=== PATIENT | female | born 1935 | race Caucasian/White ===

== ENCOUNTER 2020-12-20 17:47 | Inpatient (IN) | payer MEDICARE, OTHER ==
[~2020-12-20] VITALS: Ht 160 cm; Wt 71.8 kg
[2020-12-20] VITALS: BP 112/53
[2020-12-20 20:45] VITALS: BP 103/50
--- NOTE | 2020-12-20 20:45 | NUR ---
PATIENT ADMITTED TO ROOM 358B FROM [facility] FOR COLOSTOMY POSSIBLY IN AM BY DR. FRIEND. PLACED COMFORTABLE IN BED. VITAL SIGNS TAKEN AND RECORDED.
[2020-12-20] MEDS ORDERED: magnesium 2GM in 50ml NS 50 ML IV PRN (21:20)
[2020-12-20] MEDS ORDERED: magnesium 4gm in 100ml NS 100 ML IV PRN (21:20)
[2020-12-20] MEDS ORDERED: magnesium Cl slow-release 64mg tablet PO PRN (21:20)
[2020-12-20] MEDS ORDERED: mag hydrox/Alum hydrox/simeth 30ml oral suspension PO PRN (21:20)
[2020-12-20] MEDS ORDERED: magnesium hydroxide 30ml (MOM) UD suspension PO PRN (21:20)
[2020-12-20] MEDS ORDERED: acetaminophen 325mg tablet PO PRN (21:20)
[2020-12-20] MEDS ORDERED: potassium Cl 20 mEq SR tablet PO PRN ×2 (21:20)
[2020-12-20] MEDS ORDERED: ondansetron/PF 4mg/2ml inj IV PRN (21:20)
[2020-12-20] MEDS ORDERED: potassium Cl 40MEQ/1/2NS 520ml 520 ML IV PRN ×2 (21:20)
[2020-12-20] MEDS ORDERED: HYDROcodone/acetaminophen 5mg/325mg tablet PO PRN (23:30)
[2020-12-20] MEDS ORDERED: baclofen 10mg tablet PO PRN (23:30)
[2020-12-20] MEDS ORDERED: METO-384 PO (23:57)
[2020-12-21] VITALS (17 sets, daily range): BP systolic 112–155; BP diastolic 45–70
[2020-12-21] MEDS ORDERED: FAMO40TA58 PO (00:21)
[2020-12-21] MEDS ORDERED: GABA600T13 PO (00:26)
[2020-12-21] MEDS ORDERED: ATOR20TA66 PO (00:26)
[2020-12-21] MEDS ORDERED: CITA40TA17 PO (00:26)
[2020-12-21] MEDS ORDERED: BACL10TA PO (00:46)
[2020-12-21] MEDS ORDERED: FURO40TA4 PO (00:47)
[2020-12-21] MEDS: HYDROcodone/acetaminophen 5mg/325mg tablet PO PRN ×2 (00:48→17:31)
[2020-12-21] MEDS ORDERED: CYAN25006 SL (00:49)
[2020-12-21] MEDS ORDERED: PER5325T PO (00:52)
[2020-12-21] MEDS: morphine 2 MG/ML inj. syringe IV PRN ×2 (05:17→09:38)
[2020-12-21] MEDS ORDERED: oxyCODONE/APAP 5-325mg tablet PO PRN (05:50)
[2020-12-21 06:03] LABS: BASOPHILS % (AUTO) 0.7 % (0-1); EOSINOPHILS # (AUTO) 0.1 X10'3 (0-0.9); EOSINOPHILS % (AUTO) 2.5 % (0-6); HEMATOCRIT 30.3 % (35.0-45.0); HEMOGLOBIN 9.5 g/dl (12.0-16.0); LYMPHOCYTES # (AUTO) 0.9 X10'3 (1.1-4.8); LYMPHOCYTES % (AUTO) 16.9 % (21-51); MEAN CORPUSCULAR HEMOGLOBIN 28.7 PG (27.0-31.0); MEAN CORPUSCULAR HGB CONC 31.4 g/dL (33.0-36.5); MEAN CORPUSCULAR VOLUME 91.5 FL (78-98); MEAN PLATELET VOLUME 7.9 FL (7.4-10.4); MONOCYTES # (AUTO) 0.6 X10'3 (0-0.9); MONOCYTES % (AUTO) 11.2 % (2-12); NEUTROPHILS # (AUTO) 3.7 X10'3 (1.8-7.7); NEUTROPHILS % (AUTO) 68.7 % (42-75); PLATELET COUNT 240 X10'3 (140-440); RED BLOOD COUNT 3.32 X10'6 (4.20-5.60); RED CELL DISTRIBUTION WIDTH 15.1 % (11.5-14.5); WHITE BLOOD COUNT 5.3 X10'3 (4.5-11.0)
[2020-12-21 06:07] LABS: HEMOGLOBIN A1C 5.5 % (4.5-6.2)
[2020-12-21 06:16] LABS: PARTIAL THROMBOPLASTIN TIME 27 SECONDS (22-32)
[2020-12-21 06:22] LABS: ALANINE AMINOTRANSFERASE 27 U/L (12-78); ALBUMIN 2.3 G/DL (3.4-5.0); ALBUMIN/GLOBULIN RATIO 0.6 (1.1-1.5); ALKALINE PHOSPHATASE 149 IU/L (46-116); ANION GAP 4 (8-16); ASPARTATE AMINO TRANSFERASE 25 U/L (10-37); BILIRUBIN,TOTAL 0.3 MG/DL (0.1-1.0); BLOOD UREA NITROGEN 46 MG/DL (7-18); BUN/CREATININE RATIO 75.4 (6.6-38.0); CHLORIDE 106 MMOL/L (99-107); CHOL/HDL RATIO 1.7 (0.00-4.99); CHOLESTEROL 98 MG/DL (0-200); CREATININE 0.61 MG/DL (0.40-0.90); GLUCOSE 95 MG/DL (70-104); HDL CHOLESTEROL 59 MG/DL (35-60); LDL CHOLESTEROL 33 MG/DL (50-100); MAGNESIUM 2.1 MG/DL (1.5-2.4); POTASSIUM 4.7 MMOL/L (3.5-5.1); SODIUM 139 MMOL/L (135-145); TOTAL PROTEIN 6.4 G/DL (6.4-8.2); TRIGLYCERIDES 67 MG/DL (20-135); eGFR > 90 ML/MIN
--- NOTE | 2020-12-21 06:30 | NUR ---
Problems reprioritized. Patient report given, questions answered & plan of care reviewed with LISA WALTERS.
--- NOTE | 2020-12-21 07:00 | NUR ---
patient refused 0700 vitals.
[2020-12-21] MEDS ORDERED: atorvastatin 20mg tablet PO SCH (08:00)
[2020-12-21] MEDS ORDERED: citalopram 20mg tablet PO SCH (08:00)
[2020-12-21] MEDS ORDERED: gabapentin 300mg capsule PO SCH (08:00)
[2020-12-21] MEDS: furosemide 40mg tablet PO SCH ×2 (08:00→20:19)
[2020-12-21] MEDS: enoxaparin 40mg/0.4ml syringe SUBCUT SCH (08:00)
[2020-12-21] MEDS ORDERED: ferrous sulfate ER tablet 140 MG TABLET.ER PO SCH (08:00)
[2020-12-21] MEDS ORDERED: famotidine 20mg tablet PO SCH (08:00)
[2020-12-21] MEDS ORDERED: cyanocobalamin 500mcg tablet PO SCH (08:00)
[2020-12-21] MEDS: K and/or MAG REPLACEMENT MC SCH ×2 (08:00→20:00)
[2020-12-21] MEDS ORDERED: furosemide 40mg tablet PO SCH (08:00)
[2020-12-21] MEDS: atorvastatin 20mg tablet PO SCH (09:27)
[2020-12-21] MEDS: gabapentin 300mg capsule PO SCH ×3 (09:27→20:18)
[2020-12-21] MEDS: baclofen 10mg tablet PO SCH ×3 (09:27→20:18)
[2020-12-21] MEDS: metoprolol succinate 25mg (24-HOUR) SR. Tablet PO SCH ×2 (09:27→20:19)
[2020-12-21] MEDS: CITALOpram 10mg tablet PO SCH (09:27)
[2020-12-21] MEDS: famotidine 20mg tablet PO SCH (09:28)
[2020-12-21] MEDS: cyanocobalamin 500mcg tablet PO SCH (09:28)
[2020-12-21] MEDS: ringers solution, lacted 1,000 ML IV SCH (10:18)
--- NOTE | 2020-12-21 10:23 | NUR ---
PAGE SENT TO RADIOLOGY ... Janey CISNER[facility] 358B: PATIENT NEEDS PRE-OP CXR. THANKS!
[2020-12-21] MEDS ORDERED: hydrALAZINE 20mg/ml inj. IV PRN (11:15)
[2020-12-21] MEDS ORDERED: morphine 2 MG/ML inj. syringe IV PRN (11:15)
[2020-12-21] MEDS ORDERED: ondansetron/PF 4mg/2ml inj IV PRN (11:15)
[2020-12-21] MEDS ORDERED: morphine 4 MG/ML inj SYRINge IV PRN (11:15)
[2020-12-21] MEDS ORDERED: ringers solution, lacted 1,000 ML IV SCH (11:15)
[2020-12-21] MEDS ORDERED: HYDROmorphone/PF 0.2 MG/ML SYRINGE IV PRN ×2 (11:15)
[2020-12-21] MEDS ORDERED: labetalol 20mg/4ml (5mg/ml) syringe IV PRN (11:15)
[2020-12-21] MEDS ORDERED: midazolam 2 mg/2 ml injection ONE (12:15)
[2020-12-21] MEDS ORDERED: fentaNYL/PF 50MCG/1 ML 2ML syringe ONE (12:15)
[2020-12-21] MEDS ORDERED: LIDOcaine 2% (20mg/ml) 5ml vial ONE (12:16)
[2020-12-21] MEDS ORDERED: rocuronium 10mg/ml inj IV ONE (12:16)
[2020-12-21] MEDS ORDERED: propofol inj 20 ML IV ONE (12:16)
[2020-12-21] MEDS ORDERED: ondansetron/PF 4mg/2ml inj ONE (12:16)
--- NOTE | 2020-12-21 12:40 | NUR ---
RETURNED FROM [facility], WAS NOTIFIED BY STAFF THAT PT HAD BEEN TRANSFERRED OFF FLOOR AND NOBODY WAS NOTIFIED THAT THEY WERE TAKING HER. PRIOR TO, PT REFUSED TO REMOVE RINGS. STATED THAT SHE WILL NOT TAKE THEM OFF. HVAC RESIDENTIAL SERVICE TECHNICIAN NOTIFIED OR CHARGE OF PT BEING TAKING WITHOUT NOTICE, HE WAS AWARE.
[2020-12-21] MEDS ORDERED: dexamethasone sod phosphate 10mg/ml inj ONE (13:34)
[2020-12-21] MEDS ORDERED: glycopyrrolate 0.2mg/ml inj ONE (13:34)
[2020-12-21] MEDS ORDERED: sevoflurane 250ml liquid IH ONE (13:34)
[2020-12-21] MEDS ORDERED: neostigmine methylsulfate 1 MG/ML 10ml vial ONE (13:34)
[2020-12-21] MEDS ORDERED: ceFOXitin 1000 MG inj ONE (14:15)
--- NOTE | 2020-12-21 14:28 | NUR ---
HR 72bpm AND REGULAR O2 SAT 98 RESP 18bpm bp IS 157/70 IV 20GA RIGHT HAND LR@ 100MLS/HR BILATERAL SCDS ARANA CATH URINE IS YELLOW AND CLOUDY STOMA IS PINK NO LEAKS RUQ O2 NON-REBREATHER AT 10LPM ON SURGICAL BED REPORT RECEIVED REPORT FROM DR. WYMAN Addendum: 12/21/20 at 1455 by Kingsley Cantrell RN, RN Amended: Links added.
--- NOTE | 2020-12-21 15:28 | NUR ---
JOY CRITERIA FOR TRANSFER TO THE FLOOR HAS BEEN ACHIEVED. REPORT GIVEN AND ALL QUESTIONS ANSWERED, VSS. BED LOW 2 RAILS UP, CALL LIGHT PRESENT AND PATIENT HOOKED UP TO ALL LINES AND VSS. PATIENTS RN PRESENT TO ACCEPT CARE. PATIENT WITH 2 DENTURES PLACED IN MALE CNAS HANDS IN A LABELED DENTURE CUP. VSS. RESTING IN BED AT THIS TIME. ALL VSS. Addendum: 12/21/20 at 1534 by Kingsley James - ROMEO RN Amended: Links added.
--- NOTE | 2020-12-21 15:30 | NUR ---
PT TRANSFERRED FROM OR. VSS. COLOSTOMY INTACT, NO OUTPUT AT THIS TIME.
--- NOTE | 2020-12-21 15:42 | NUR ---
Pt's last FC change, per [facility], was on 12/01/20 perLuz US.
--- NOTE | 2020-12-21 18:15 | NUR ---
Problems reprioritized. Patient report given, questions answered & plan of care reviewed with KATIE WILSON RN.
--- NOTE | 2020-12-21 18:30 | NUR ---
Patient in room [facility]. I have received report from LISA WALTERS and had the opportunity to ask questions and assume patient care.
[2020-12-22] VITALS: BP 160/61
[2020-12-22 04:00] VITALS: BP 155/63
[2020-12-22 06:06] LABS: BASOPHILS % (AUTO) 0.2 % (0-1); EOSINOPHILS % (AUTO) 0.1 % (0-6); HEMATOCRIT 34.2 % (35.0-45.0); HEMOGLOBIN 10.7 g/dl (12.0-16.0); LYMPHOCYTES # (AUTO) 0.6 X10'3 (1.1-4.8); MEAN CORPUSCULAR HEMOGLOBIN 28.6 PG (27.0-31.0); MEAN CORPUSCULAR HGB CONC 31.4 g/dL (33.0-36.5); MEAN CORPUSCULAR VOLUME 91.3 FL (78-98); MEAN PLATELET VOLUME 7.9 FL (7.4-10.4); MONOCYTES # (AUTO) 0.7 X10'3 (0-0.9); MONOCYTES % (AUTO) 8.2 % (2-12); NEUTROPHILS # (AUTO) 6.7 X10'3 (1.8-7.7); NEUTROPHILS % (AUTO) 83.5 % (42-75); PLATELET COUNT 249 X10'3 (140-440); RED BLOOD COUNT 3.75 X10'6 (4.20-5.60); RED CELL DISTRIBUTION WIDTH 15.1 % (11.5-14.5)
[2020-12-22] MEDS: ringers solution, lacted 1,000 ML IV SCH ×2 (06:15→13:00)
[2020-12-22 06:27] LABS: ALANINE AMINOTRANSFERASE 25 U/L (12-78); ALBUMIN 2.5 G/DL (3.4-5.0); ALBUMIN/GLOBULIN RATIO 0.6 (1.1-1.5); ALKALINE PHOSPHATASE 144 IU/L (46-116); ANION GAP 6 (8-16); ASPARTATE AMINO TRANSFERASE 21 U/L (10-37); BILIRUBIN,TOTAL 0.4 MG/DL (0.1-1.0); BLOOD UREA NITROGEN 23 MG/DL (7-18); CALCIUM 9.1 MG/DL (8.5-10.1); CHLORIDE 105 MMOL/L (99-107); CREATININE 0.59 MG/DL (0.40-0.90); GLUCOSE 121 MG/DL (70-104); POTASSIUM 4.6 MMOL/L (3.5-5.1); SODIUM 140 MMOL/L (135-145); TOTAL CARBON DIOXIDE 29.3 MMOL/L (24-32); eGFR > 90 ML/MIN
[2020-12-22 06:30] VITALS: BP 165/70
--- NOTE | 2020-12-22 06:30 | NUR ---
Problems reprioritized. Patient report given, questions answered & plan of care reviewed with THAO RN.
--- NOTE | 2020-12-22 06:45 | NUR ---
Patient in room [facility]. I have received report from Mary Hernandez RN and had the opportunity to ask questions and assume patient care.
[2020-12-22] MEDS: K and/or MAG REPLACEMENT MC SCH ×2 (07:12→20:00)
[2020-12-22] MEDS: enoxaparin 40mg/0.4ml syringe SUBCUT SCH (09:01)
[2020-12-22] MEDS: furosemide 40mg tablet PO SCH ×2 (09:01→20:28)
[2020-12-22] MEDS: gabapentin 300mg capsule PO SCH ×2 (09:01→13:00)
[2020-12-22] MEDS: baclofen 10mg tablet PO SCH ×2 (09:02→13:00)
[2020-12-22] MEDS: cyanocobalamin 500mcg tablet PO SCH (09:02)
[2020-12-22] MEDS: famotidine 20mg tablet PO SCH (09:02)
[2020-12-22] MEDS: CITALOpram 10mg tablet PO SCH (09:02)
[2020-12-22] MEDS: atorvastatin 20mg tablet PO SCH (09:02)
[2020-12-22] MEDS: metoprolol succinate 25mg (24-HOUR) SR. Tablet PO SCH ×2 (09:02→20:28)
[2020-12-22] MEDS: HYDROcodone/acetaminophen 5mg/325mg tablet PO PRN (09:03)
[2020-12-22 11:00] VITALS: BP 135/55
--- NOTE | 2020-12-22 18:20 | NUR ---
Problems reprioritized. Patient report given, questions answered & plan of care reviewed with Mary Hernandez RN.
--- NOTE | 2020-12-22 18:30 | NUR ---
Patient in room [facility]. I have received report from THAO WALTERS and had the opportunity to ask questions and assume patient care.
[2020-12-22 20:00] VITALS: BP 127/53
[2020-12-22] MEDS: acetaminophen 325mg tablet PO PRN (20:39)
[2020-12-23] VITALS: BP 137/50
--- NOTE | 2020-12-23 06:15 | NUR ---
Problems reprioritized. Patient report given, questions answered & plan of care reviewed with THAO RN.
--- NOTE | 2020-12-23 06:30 | NUR ---
Patient in room [facility]. I have received report from Mary Hernandez RN and had the opportunity to ask questions and assume patient care.
[2020-12-23 06:43] LABS: BASOPHILS % (AUTO) 0.3 % (0-1); EOSINOPHILS % (AUTO) 0.1 % (0-6); HEMATOCRIT 33.3 % (35.0-45.0); HEMOGLOBIN 10.7 g/dl (12.0-16.0); LYMPHOCYTES # (AUTO) 0.8 X10'3 (1.1-4.8); MEAN CORPUSCULAR HGB CONC 32.3 g/dL (33.0-36.5); MEAN CORPUSCULAR VOLUME 89.8 FL (78-98); MEAN PLATELET VOLUME 8.1 FL (7.4-10.4); MONOCYTES # (AUTO) 0.6 X10'3 (0-0.9); MONOCYTES % (AUTO) 7.8 % (2-12); NEUTROPHILS % (AUTO) 80.8 % (42-75); PLATELET COUNT 242 X10'3 (140-440); RED BLOOD COUNT 3.71 X10'6 (4.20-5.60); RED CELL DISTRIBUTION WIDTH 14.5 % (11.5-14.5); WHITE BLOOD COUNT 7.4 X10'3 (4.5-11.0)
[2020-12-23 07:24] LABS: ALANINE AMINOTRANSFERASE 24 U/L (12-78); ALBUMIN 2.5 G/DL (3.4-5.0); ALBUMIN/GLOBULIN RATIO 0.6 (1.1-1.5); ALKALINE PHOSPHATASE 131 IU/L (46-116); ANION GAP 8 (8-16); ASPARTATE AMINO TRANSFERASE 19 U/L (10-37); BILIRUBIN,TOTAL 0.4 MG/DL (0.1-1.0); BLOOD UREA NITROGEN 16 MG/DL (7-18); BUN/CREATININE RATIO 25.4 (6.6-38.0); CALCIUM 8.8 MG/DL (8.5-10.1); CHLORIDE 102 MMOL/L (99-107); CREATININE 0.63 MG/DL (0.40-0.90); GLUCOSE 119 MG/DL (70-104); MAGNESIUM 1.6 MG/DL (1.5-2.4); POTASSIUM 3.6 MMOL/L (3.5-5.1); SODIUM 140 MMOL/L (135-145); TOTAL CARBON DIOXIDE 29.6 MMOL/L (24-32); TOTAL PROTEIN 6.8 G/DL (6.4-8.2); eGFR 90 ML/MIN
[2020-12-23 07:26] VITALS: BP 133/59
[2020-12-23] MEDS: K and/or MAG REPLACEMENT MC SCH ×2 (08:00→20:00)
--- NOTE | 2020-12-23 08:50 | NUR ---
Dr Mchugh stated pt is cleared surgically for discharge/placement.
[2020-12-23] MEDS: ringers solution, lacted 1,000 ML IV SCH (09:21)
[2020-12-23] MEDS: acetaminophen 325mg tablet PO PRN (09:21)
[2020-12-23] MEDS: cyanocobalamin 500mcg tablet PO SCH (09:23)
[2020-12-23] MEDS: CITALOpram 10mg tablet PO SCH (09:24)
[2020-12-23] MEDS: famotidine 20mg tablet PO SCH (09:24)
[2020-12-23] MEDS: atorvastatin 20mg tablet PO SCH (09:24)
[2020-12-23] MEDS: metoprolol succinate 25mg (24-HOUR) SR. Tablet PO SCH ×2 (09:24→20:13)
[2020-12-23] MEDS: furosemide 40mg tablet PO SCH ×2 (09:25→20:12)
[2020-12-23] MEDS: enoxaparin 40mg/0.4ml syringe SUBCUT SCH (09:26)
[2020-12-23] MEDS ORDERED: HYDROcodone/acetaminophen 5mg/325mg tablet PO PRN (10:50)
[2020-12-23 11:08] VITALS: BP 160/50
[2020-12-23] MEDS: oxyCODONE/APAP 5-325mg tablet PO PRN ×3 (13:32→22:39)
--- NOTE | 2020-12-23 19:10 | NUR ---
Problems reprioritized. Patient report given, questions answered & plan of care reviewed with ROMEO Khoury.
--- NOTE | 2020-12-23 19:25 | NUR ---
I have received report from ROMEO Robbins and had the opportunity to ask questions and assume patient care.
--- NOTE | 2020-12-23 19:34 | NUR ---
Patient in room [facility]. I have received report from ROMEO Robbins and had the opportunity to ask questions and assume patient care.
[2020-12-23 20:00] VITALS: BP 117/53
[2020-12-23 23:41] VITALS: BP 153/76
[2020-12-24] MEDS: ringers solution, lacted 1,000 ML IV SCH ×2 (01:39→18:07)
[2020-12-24] MEDS: oxyCODONE/APAP 5-325mg tablet PO PRN ×5 (02:48→22:05)
--- NOTE | 2020-12-24 06:25 | NUR ---
Patient in room [facility]. I have received report from ROMEO Khoury and had the opportunity to ask questions and assume patient care.
--- NOTE | 2020-12-24 06:27 | NUR ---
Problems reprioritized. Patient report given, questions answered & plan of care reviewed with ROMEO Robbins.
--- NOTE | 2020-12-24 06:28 | NUR ---
Patient report given, questions answered & plan of care reviewed with ROMEO Robbins from [facility] Silviano SHANKS. I agree with her report and documentation during this shift..
[2020-12-24 06:36] LABS: ALANINE AMINOTRANSFERASE 24 U/L (12-78); ALBUMIN 2.5 G/DL (3.4-5.0); ALBUMIN/GLOBULIN RATIO 0.6 (1.1-1.5); ALKALINE PHOSPHATASE 130 IU/L (46-116); ANION GAP 10 (8-16); ASPARTATE AMINO TRANSFERASE 31 U/L (10-37); BILIRUBIN,TOTAL 0.6 MG/DL (0.1-1.0); BLOOD UREA NITROGEN 12 MG/DL (7-18); CALCIUM 8.4 MG/DL (8.5-10.1); CHLORIDE 94 MMOL/L (99-107); GLUCOSE 115 MG/DL (70-104); MAGNESIUM 1.3 MG/DL (1.5-2.4); SODIUM 131 MMOL/L (135-145); TOTAL CARBON DIOXIDE 26.7 MMOL/L (24-32); TOTAL PROTEIN 6.6 G/DL (6.4-8.2); eGFR > 90 ML/MIN
[2020-12-24 06:56] LABS: POTASSIUM 2.9 MMOL/L (3.5-5.1)
[2020-12-24] MEDS: K and/or MAG REPLACEMENT MC SCH ×2 (07:43→21:50)
[2020-12-24] MEDS ORDERED: magnesium 2GM in 50ml NS 50 ML IV PRN (07:55)
[2020-12-24] MEDS ORDERED: magnesium 4gm in 100ml NS 100 ML IV PRN (07:55)
[2020-12-24] MEDS ORDERED: potassium Cl 20 mEq SR tablet PO PRN (07:55)
[2020-12-24] MEDS ORDERED: potassium Cl 40MEQ/1/2NS 520ml 520 ML IV PRN (07:55)
[2020-12-24 08:00] VITALS: BP 148/95
[2020-12-24 08:08] LABS: BASOPHILS % (AUTO) 0.3 % (0-1); EOSINOPHILS % (AUTO) 0.7 % (0-6); HEMOGLOBIN 10.1 g/dl (12.0-16.0); LYMPHOCYTES # (AUTO) 0.6 X10'3 (1.1-4.8); LYMPHOCYTES % (AUTO) 10.7 % (21-51); MEAN CORPUSCULAR HEMOGLOBIN 28.8 PG (27.0-31.0); MEAN CORPUSCULAR HGB CONC 32.6 g/dL (33.0-36.5); MEAN CORPUSCULAR VOLUME 88.3 FL (78-98); MONOCYTES # (AUTO) 0.5 X10'3 (0-0.9); MONOCYTES % (AUTO) 8.8 % (2-12); NEUTROPHILS # (AUTO) 4.8 X10'3 (1.8-7.7); NEUTROPHILS % (AUTO) 79.5 % (42-75); PLATELET COUNT 188 X10'3 (140-440); RED BLOOD COUNT 3.52 X10'6 (4.20-5.60); RED CELL DISTRIBUTION WIDTH 14.9 % (11.5-14.5)
[2020-12-24] MEDS: furosemide 40mg tablet PO SCH ×2 (08:23→20:23)
[2020-12-24] MEDS: metoprolol succinate 25mg (24-HOUR) SR. Tablet PO SCH ×2 (08:23→20:24)
[2020-12-24] MEDS: CITALOpram 10mg tablet PO SCH (08:23)
[2020-12-24] MEDS: atorvastatin 20mg tablet PO SCH (08:23)
[2020-12-24] MEDS: cyanocobalamin 500mcg tablet PO SCH (08:24)
[2020-12-24] MEDS: famotidine 20mg tablet PO SCH (08:24)
[2020-12-24] MEDS: magnesium Cl slow-release 64mg tablet PO PRN ×2 (08:30→16:34)
[2020-12-24] MEDS: potassium Cl 20 mEq SR tablet PO PRN ×3 (08:30→16:34)
[2020-12-24 11:59] VITALS: BP 136/62
--- NOTE | 2020-12-24 18:45 | NUR ---
Problems reprioritized. Patient report given, questions answered & plan of care reviewed with ROMEO Reyna.
--- NOTE | 2020-12-24 18:45 | NUR ---
Patient in room [facility]. I have received report from Itzel WALTERS and had the opportunity to ask questions and assume patient care.
[2020-12-24 19:33] VITALS: BP 136/73
[2020-12-24] MEDS: baclofen 10mg tablet PO SCH (20:24)
[2020-12-24] MEDS: gabapentin 300mg capsule PO SCH (20:24)
[2020-12-25 00:03] VITALS: BP 122/55
[2020-12-25 06:05] LABS: BASOPHILS % (AUTO) 0.4 % (0-1); EOSINOPHILS # (AUTO) 0.1 X10'3 (0-0.9); EOSINOPHILS % (AUTO) 2.3 % (0-6); HEMATOCRIT 30.6 % (35.0-45.0); HEMOGLOBIN 9.9 g/dl (12.0-16.0); LYMPHOCYTES # (AUTO) 0.7 X10'3 (1.1-4.8); LYMPHOCYTES % (AUTO) 11.7 % (21-51); MEAN CORPUSCULAR HEMOGLOBIN 28.7 PG (27.0-31.0); MEAN CORPUSCULAR HGB CONC 32.3 g/dL (33.0-36.5); MEAN CORPUSCULAR VOLUME 88.9 FL (78-98); MEAN PLATELET VOLUME 8.3 FL (7.4-10.4); MONOCYTES # (AUTO) 0.7 X10'3 (0-0.9); MONOCYTES % (AUTO) 11.6 % (2-12); NEUTROPHILS # (AUTO) 4.3 X10'3 (1.8-7.7); PLATELET COUNT 207 X10'3 (140-440); RED BLOOD COUNT 3.45 X10'6 (4.20-5.60); RED CELL DISTRIBUTION WIDTH 14.9 % (11.5-14.5); WHITE BLOOD COUNT 5.9 X10'3 (4.5-11.0)
[2020-12-25 06:21] LABS: ALANINE AMINOTRANSFERASE 22 U/L (12-78); ALBUMIN 2.3 G/DL (3.4-5.0); ALBUMIN/GLOBULIN RATIO 0.6 (1.1-1.5); ALKALINE PHOSPHATASE 114 IU/L (46-116); ANION GAP 6 (8-16); ASPARTATE AMINO TRANSFERASE 34 U/L (10-37); BILIRUBIN,TOTAL 0.4 MG/DL (0.1-1.0); BLOOD UREA NITROGEN 11 MG/DL (7-18); BUN/CREATININE RATIO 16.4 (6.6-38.0); CALCIUM 8.2 MG/DL (8.5-10.1); CHLORIDE 96 MMOL/L (99-107); CREATININE 0.67 MG/DL (0.40-0.90); GLUCOSE 102 MG/DL (70-104); MAGNESIUM 1.4 MG/DL (1.5-2.4); POTASSIUM 4.2 MMOL/L (3.5-5.1); SODIUM 130 MMOL/L (135-145); TOTAL PROTEIN 6.2 G/DL (6.4-8.2); eGFR 84 ML/MIN
--- NOTE | 2020-12-25 06:40 | NUR ---
Problems reprioritized. Patient report given, questions answered & plan of care reviewed with Amparo WALTERS.
[2020-12-25 07:00] VITALS: BP 133/88
[2020-12-25] MEDS: cyanocobalamin 500mcg tablet PO SCH (07:37)
[2020-12-25] MEDS: furosemide 40mg tablet PO SCH ×2 (07:38→21:12)
[2020-12-25] MEDS: gabapentin 300mg capsule PO SCH ×3 (07:38→21:13)
[2020-12-25] MEDS: metoprolol succinate 25mg (24-HOUR) SR. Tablet PO SCH ×2 (07:38→21:13)
[2020-12-25] MEDS: baclofen 10mg tablet PO SCH ×3 (07:39→21:12)
[2020-12-25] MEDS: CITALOpram 10mg tablet PO SCH (07:39)
[2020-12-25] MEDS: atorvastatin 20mg tablet PO SCH (07:39)
[2020-12-25] MEDS: oxyCODONE/APAP 5-325mg tablet PO PRN ×4 (07:39→21:12)
[2020-12-25] MEDS: famotidine 20mg tablet PO SCH (07:39)
[2020-12-25] MEDS: K and/or MAG REPLACEMENT MC SCH ×2 (08:00→20:00)
[2020-12-25] MEDS: ringers solution, lacted 1,000 ML IV SCH (14:09)
--- NOTE | 2020-12-25 14:12 | NUR ---
Rad WALTERS, wound care nurse was notified about the wound vac order today
--- NOTE | 2020-12-25 16:05 | NUR ---
Pt presented to ED from [facility] with large decubitus ulcer on her lower back. 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 Spoke to pt at bed side, pt reports not tolerating milk to drink and eating ice cream but pt eats cheese and other dairy product, pt likely has lactose intolerance not milk allergy.Pt average PO intake is less than 25% of meals, not meeting nutrient needs for wound healing. Pt reports drinking protein supplements for wound healing prior to admit; pt would benefit from harvey BID BL and ensure high protein WS, d/w bed side nurse, notified.D/w pt importance of high protein diet for wound healing, pt received high protein written education, colostomy education still needed. Pt receiving soft bite sized diet, pt reports having difficulty in cutting food d/t weakness. pt requests finger foods for ease of PO. Will continue to follow up. Recommend: 1.Continue soft bite sized diet, encourage PO 2.Harvey BID BL and ensure high protein WS, pending MD verification in EMR 3.Bowel care as needed 4.Weight per rx Addendum: 12/25/20 at 1606 by Jean Pierre Kingsley [employer] RD Amended: Links added. Addendum: 12/25/20 at [address] CHELSEA agree with leadership intern note
[2020-12-25] MEDS: magnesium Cl slow-release 64mg tablet PO PRN ×2 (16:20→21:12)
--- NOTE | 2020-12-25 17:13 | NUR ---
Wound care in to change ostomy bag. This ostomy has a joselyn in place still. It will need the eakins seal/ring to be used to cover the joselyn to secure a fit of the appliance. Use a 4 inch bag until joselyn is removed. Dr. Schuler will need to be called to see when he wants the joselyn removed. Continue to teach patient how to drain bag. If any leaking happens appliance must be changed and skin cleansed with water. No bath wipes or soap as this will not allow appliance to adhere. Addendum: 12/25/20 at 1716 by Stephani Reese RN Amended: Links added.
--- NOTE | 2020-12-25 18:35 | NUR ---
Patient in room [facility]. I have received report from Amparo WALTERS and had the opportunity to ask questions and assume patient care.
--- NOTE | 2020-12-25 18:38 | NUR ---
Problems reprioritized. Patient report given, questions answered & plan of care reviewed with Maribell WALTERS.
[2020-12-25 19:00] VITALS: BP 122/59
[2020-12-25 21:21] VITALS: BP 130/51
--- NOTE | 2020-12-26 06:28 | NUR ---
Problems reprioritized. Patient report given, questions answered & plan of care reviewed with Amparo WALTERS.
[2020-12-26 07:00] VITALS: BP 131/56
[2020-12-26] MEDS: metoprolol succinate 25mg (24-HOUR) SR. Tablet PO SCH (08:00)
[2020-12-26] MEDS: K and/or MAG REPLACEMENT MC SCH (08:00)
--- NOTE | 2020-12-26 08:19 | NUR ---
Patient sleeping comfortably at this time.
[2020-12-26] MEDS: famotidine 20mg tablet PO SCH (09:17)
[2020-12-26] MEDS: furosemide 40mg tablet PO SCH (09:17)
[2020-12-26] MEDS: cyanocobalamin 500mcg tablet PO SCH (09:17)
[2020-12-26] MEDS: atorvastatin 20mg tablet PO SCH (09:17)
[2020-12-26] MEDS: CITALOpram 10mg tablet PO SCH (09:17)
[2020-12-26] MEDS: oxyCODONE/APAP 5-325mg tablet PO PRN ×2 (09:17→13:26)
[2020-12-26] MEDS: baclofen 10mg tablet PO SCH ×2 (09:18→12:10)
[2020-12-26] MEDS: gabapentin 300mg capsule PO SCH ×2 (09:20→12:10)
[2020-12-26] MEDS: ringers solution, lacted 1,000 ML IV SCH (09:33)
[2020-12-26 10:22] LABS: BASOPHILS % (AUTO) 0.3 % (0-1); EOSINOPHILS # (AUTO) 0.1 X10'3 (0-0.9); EOSINOPHILS % (AUTO) 1.2 % (0-6); HEMATOCRIT 33.6 % (35.0-45.0); HEMOGLOBIN 10.9 g/dl (12.0-16.0); LYMPHOCYTES # (AUTO) 0.5 X10'3 (1.1-4.8); LYMPHOCYTES % (AUTO) 6.4 % (21-51); MEAN CORPUSCULAR HEMOGLOBIN 28.8 PG (27.0-31.0); MEAN CORPUSCULAR HGB CONC 32.3 g/dL (33.0-36.5); MEAN CORPUSCULAR VOLUME 89.3 FL (78-98); MEAN PLATELET VOLUME 8.5 FL (7.4-10.4); MONOCYTES # (AUTO) 0.6 X10'3 (0-0.9); MONOCYTES % (AUTO) 7.4 % (2-12); NEUTROPHILS # (AUTO) 7.3 X10'3 (1.8-7.7); NEUTROPHILS % (AUTO) 84.7 % (42-75); PLATELET COUNT 247 X10'3 (140-440); RED BLOOD COUNT 3.77 X10'6 (4.20-5.60); WHITE BLOOD COUNT 8.6 X10'3 (4.5-11.0)
[2020-12-26 10:37] LABS: ASPARTATE AMINO TRANSFERASE 25 U/L (10-37)
[2020-12-26 10:39] LABS: ALANINE AMINOTRANSFERASE 26 U/L (12-78); ALBUMIN 2.4 G/DL (3.4-5.0); ALBUMIN/GLOBULIN RATIO 0.6 (1.1-1.5); ALKALINE PHOSPHATASE 127 IU/L (46-116); ANION GAP 8 (8-16); BILIRUBIN,TOTAL 0.5 MG/DL (0.1-1.0); BLOOD UREA NITROGEN 11 MG/DL (7-18); BUN/CREATININE RATIO 13.8 (6.6-38.0); CALCIUM 8.6 MG/DL (8.5-10.1); CHLORIDE 95 MMOL/L (99-107); GLUCOSE 174 MG/DL (70-104); POTASSIUM 4.2 MMOL/L (3.5-5.1); SODIUM 128 MMOL/L (135-145); TOTAL CARBON DIOXIDE 25.5 MMOL/L (24-32); TOTAL PROTEIN 6.5 G/DL (6.4-8.2); eGFR 69 ML/MIN
[2020-12-26 11:00] VITALS: BP 94/55
--- NOTE | 2020-12-26 12:57 | NUR ---
Report given over the phone to Georgia WALTERS from [facility]. Patient will leave with the marquez catheter as patient is chronic marquez and has wound vac dressing on. Estimated brick picker time is 13:30 today.
--- NOTE | 2020-12-26 13:35 | NUR ---
Per Dr. Schuler, the joselyn in the ostomy will need to come out in 7 to 10 days. I called Donya again to talk to the nurse Georgia about this but she was not available, the other nursing staff Federico took my message to relay it to Georgia WALTERS
--- NOTE | 2020-12-26 14:00 | NUR ---
Patient discharged to [facility] with all her belongings with her. [employer] pick her up for transportation. Paperworks for [facility] given to the [employer] staff. Peripheral IV catheter removed, tip intact. Addendum: 12/26/20 at 1416 by Amparo Naik RN Wound vac machine disconnected from the patient before discharge, the dressing is intact. I had communicated this to [facility] nurse that patient will need to be hooked to Wound vac machine when patient arrived there.
== END 2020-12-26 14:00 | DRG 982 ==
LOC: UNDOADMIN 20:20 → SUR 3N 20:20 → UNDODISIN 12-26 14:00
PROVIDERS: ADMIT Internal Medicine; ATTEND Internal Medicine
PROC: 0D1N0Z4 Bypass Sigmoid Colon to Cutaneous, Open Approach (ICD-10-PCS; principal; 2020-12-21 13:34)
DX: L89.154 Pressure ulcer of sacral region, stage 4 (principal); M33.20 Polymyositis, organ involvement unspecified; E87.1 Hypo-osmolality and hyponatremia; I10 Essential (primary) hypertension; M79.7 Fibromyalgia; D64.9 Anemia, unspecified; Z20.822 Contact with and (suspected) exposure to COVID-19; E78.5 Hyperlipidemia, unspecified; E83.42 Hypomagnesemia; Z87.891 Personal history of nicotine dependence; Z90.710 Acquired absence of both cervix and uterus; Z98.84 Bariatric surgery status; Z93.3 Colostomy status; Z88.8 Allergy status to other drugs, medicaments and biological substances; Z90.49 Acquired absence of other specified parts of digestive tract
CPT/HCPCS: 36415; 71045; 80053; 80061; 83036; 83735; 84132; 85025; 85610; 85730; 87081; 87426; 97110; 97112; 97161; 97530; A4421; A4618; A7000; G0378; J0694; J1100; J1170; J1650; J2001; J2250; J2270; J2405; J2704; J2710; J3010; J3490; J7120